=== PATIENT | female | born 1995 | race Caucasian/White ===

== ENCOUNTER 2017-12-21 13:56 | Outpatient (CLI) | payer BC | END 2017-12-21 13:57 | disposition home or self-care (01) | LOC: BICULT 13:56 | PROVIDERS: ATTEND Urology | DX: N20.0 Calculus of kidney (principal) | CPT/HCPCS: 76770 ==

== ENCOUNTER 2018-01-28 15:40 | Outpatient (CLI) | payer BC ==
[2018-01-28 16:30] LABS: Clarity Hazy (Clear); Urobilinogen 0.2 mg/dL (0.2-1.0)
[2018-01-28 16:32] LABS: Glucose, Urine (Dipstick) Unable to Interpret mg/dL (Negative); Leukocyte Unable to Interpret (Negative); Nitrite Unable to Interpret (Negative); Protein, Urine (Dipstick) Unable to Interpret mg/dL (Neg-Trace)
[2018-01-28 16:33] LABS: Bilirubin Unable to Interpret (Negative); Blood, Urine Unable to Interpret (Negative)
[2018-01-28 16:39] LABS: Bacteria/HPF Rare-Few HPF (None Seen); WBC/HPF None Seen HPF (0-3)
--- NOTE | 2018-01-28 17:48 | CT ---
NONCONTRAST CT ABDOMEN AND PELVIS 01/28/18 HISTORY: Severe left flank pain for one week. Patient has had flank pain for approximately one month. History of kidney stones. COMPARISON: 08/11/12. FINDINGS: There is a nonobstructing inferior pole right renal calculus measuring 7 to 8 mm. No left renal calcu kurtis is present and there is no hydronephrosis identified. While portions of each ureter are not well seen due to adjacent unopacified structures, there is no calculus seen along the expected course of e ither ureter to suggest a ureteral calculus. The visualized lung bases, liver, spleen, pancreas, bilateral adrenal glands, and left kidney demonst rate a grossly normal nonenhanced CT appearance. The urinary bladder is completely decompressed and not well evaluated. Uterus and adnexal structures have a grossly normal CT appearance. There is a small appendicolith in the appendix, but the appendix is normal in caliber without CT find ings to suggest appendicitis. There has been no additional significant interval change from the study in 2011. IMPRESSION: 1. Nonobstructing inferior pole right renal calculus. 2. No evidence of a ureteral calculus. 3. No CT evidence of appendicitis. 4. Multiple punctate increased density foci seen scattered throughout the colon likely related t o ingested material such as Bismuth. POS: [facility]
== END 2018-01-28 15:41 | disposition home or self-care (01) ==
LOC: SCSCT 15:40
PROVIDERS: ATTEND Urology
DX: N20.0 Calculus of kidney (principal)
CPT/HCPCS: 74176; 81001; 87086

== ENCOUNTER 2018-06-01 15:38 | Outpatient (CLI) | payer BC | END 2018-06-01 15:39 | disposition home or self-care (01) | LOC: BICRAD 15:38 | PROVIDERS: ATTEND Internal Medicine Rheumatology | DX: M46.97 Unspecified inflammatory spondylopathy, lumbosacral region (principal) | CPT/HCPCS: 72100 ==

== ENCOUNTER 2018-12-01 16:13 | Outpatient (CLI) | payer BC ==
--- NOTE | 2018-12-01 17:11 | RAD ---
RADIOGRAPH ABDOMEN 1 VIEW: 12/01/18 HISTORY: 23-year-old female with nephrolithiasis and right flank pain . COMPARISON: No prior KUBs. FINDINGS: There is an 8 x 6 mm calculus in the right upper quadrant medially, just lateral to the upper lumbar spine (there are transitional levels at thoracolumbar junction and lumbosacral junction). This probab ly represents the calculus that was noted at a lower pole calyx on the CT of 01/28/18, which has proba yvonne migrated now centrally into the right renal pelvis or UPJ. Bowel gas pattern is normal. No other calculus is visualized. IMPRESSION: Approximately 8 mm calculus has apparently migrated from right renal lower pole calyx into the right renal pelvis or right ureteropelvic junction. POS: [facility]
== END 2018-12-01 16:14 | disposition home or self-care (01) ==
LOC: BICRAD 16:13
PROVIDERS: ATTEND Urology
DX: N20.0 Calculus of kidney (principal)
CPT/HCPCS: 74018

== ENCOUNTER 2018-12-23 00:23 | Outpatient (CLI) | payer BC ==
[2018-12-23 15:42] LABS: Hemoglobin 13.7 g/dL (12.0-16.0); Mean Corpuscular HGB CONC 32.6 g/dL (32.0-36.0); Mean Corpuscular Hemoglobin 29.2 pg (27.0-31.0); Mean Corpuscular Volume 89.6 fL (78.0-98.0); Mean Platelet Volume 7.8 fL (7.4-10.4); Platelet Count 383 thou/uL (130-400); RBC Distribution Width 12.1 % (11.5-14.5); Red Blood Cell (RBC) Count 4.69 mill/uL (4.20-5.40); White Blood Cell (WBC) Count 10.2 thou/uL (4.8-10.8)
[2018-12-23 15:48] LABS: Bilirubin Negative (Negative); Blood, Urine Moderate (Negative); Clarity CLEAR (Clear); Glucose, Urine (Dipstick) Negative (Negative); Leukocyte Negative (Negative); Nitrite Negative (Negative); Protein, Urine (Dipstick) Negative (Neg-Trace); Urobilinogen 0.2 mg/dL (0.2-1.0); pH, Urine 6.5 (5.0-9.0)
[2018-12-23 15:50] LABS: Bacteria/HPF None Seen HPF (None Seen); Hyaline Casts/LPF 0-3 HYALINE CAST LPF (0-3 Hyaline); Pathc Cast-AUWi Flag 0.29 (0-2.49); RBC/HPF 21-50 HPF (0-3); Squamous Epithelial 0-3 HPF (0-3); WBC/HPF 0-3 HPF (0-3)
[2018-12-23 15:54] LABS: INR-International Normal Ratio 1.1; PTT 31.5 SEC (22.9-36.1); Prothrombin Time 13.8 SEC (12.0-14.7)
[2018-12-23 16:02] LABS: Anion Gap 13 mmol/L (10-20); BHCG - Serum Negative (NEGATIVE); BUN (Urea Nitrogen) 14 mg/dL (7.0-18.7); Calc. Creatinine Clearance 0 mL/min (70-130); Calcium 10.2 mg/dL (7.8-10.44); Carbon Dioxide 24 mmol/L (22-29); Chloride 106 mmol/L (98-107); Estimated GFR-MDRD 71; Glucose 88 mg/dL (70-105); Pregs Control Background? CLEAR/WHITE (CLR/WHITE); Pregs Control Bar Appear? YES (CONTROL BAR); Sodium 139 mmol/L (136-145)
== END 2018-12-23 00:24 | disposition home or self-care (01) ==
LOC: LABBT 00:23
PROVIDERS: ATTEND Urology
DX: Z01.812 Encounter for preprocedural laboratory examination (principal); R30.0 Dysuria; N39.41 Urge incontinence; R10.2 Pelvic and perineal pain; G89.29 Other chronic pain; N30.10 Interstitial cystitis (chronic) without hematuria; N20.0 Calculus of kidney
CPT/HCPCS: 80048; 81001; 84703; 85027; 85610; 85730; 87086

== ENCOUNTER 2018-12-29 08:08 | Outpatient (CLI) | payer BC ==
--- NOTE | 2018-12-29 09:18 | RAD ---
FRONTAL VIEW ABDOMEN KUB TWO VIEWS PROVIDED: INDICATION: Nephrolithiasis. FINDINGS: There are scattered air-filled bowel loops which do obscure the right renal shadow. Grossly stable d ensity overlies the right renal shadow, likely within the region of the right UPJ. No discrete left urinary tract calculi are visualized. IMPRESSION: Stable-appearing density projecting at the expected region of the right ureteropelvic junction. POS: [facility]
== END 2018-12-29 08:09 | disposition home or self-care (01) ==
LOC: BICRAD 08:08
PROVIDERS: ATTEND Urology
DX: N20.0 Calculus of kidney (principal); N28.89 Other specified disorders of kidney and ureter
CPT/HCPCS: 74018

== ENCOUNTER 2018-12-30 06:56 | Day surgery (SDC) | payer BC ==
[2018-12-23 15:41] VITALS: BMI 31.8
[2018-12-30] MEDS ORDERED: Midazolam HCl 2 mg/2 ml Vial ONE (08:37)
[2018-12-30] MEDS ORDERED: Fentanyl 100 MCG/2 ML VIAL ONE ×5 (08:37→11:19)
[2018-12-30] MEDS ORDERED: Levofloxacin 500 mg/D5W 100 ml Premix Bag ONE (08:38)
--- NOTE | 2018-12-30 10:38 | OP ---
DATE OF PROCEDURE: 12/30/2018 SERVICE: Urology. PREOPERATIVE DIAGNOSIS: Right ureteropelvic junction stone. POSTOPERATIVE DIAGNOSIS: Right ureteropelvic junction stone. PROCEDURE PERFORMED: Right extracorporeal shockwave lithotripsy. INDICATIONS FOR PROCEDURE: Ms. Carter is a 23-year-old white female, who initially presented to me with severe right flank pain. X-rays demonstrated a right UPJ stone. We discussed treatment options and due to her interstitial cystitis. She elected to go for ESWL. Risks and benefits have discussed and she has agreed to proceed forward. DESCRIPTION OF PROCEDURE: After identification of armband and verification of consent, the patient was brought back to the operating room. She underwent general anesthesia with an LMA. She was left in the supine position and positioned over the SWL machine. The stone was lined up on the X, Y, and Z axis and shocks began at 1 ice bar at 60 hertz. This was progressively increased up to 3 ice bars and ultimately 4 ice bars to achieve complete fragmentation. The stone did completely fragment with a total of 2500 shocks delivered. The patient tolerated the procedure well. She was awakened, taken to PACU for recovery in stable condition. COMPLICATIONS: None. ESTIMATED BLOOD LOSS: Minimal. RETAINED TUBES AND DRAINS: None. SPECIMENS: None. DISPOSITION: The patient will be discharged home and follow up with me in approximately 2 weeks for postop check. Job ID: [id number]
[2018-12-30] MEDS ORDERED: Promethazine HCl 25 MG/ML VIAL ONE (10:49)
[2018-12-30] MEDS ORDERED: Meperidine HCl/PF 25 MG/ML VIAL ONE (10:49)
[2018-12-30] MEDS ORDERED: Metoprolol Tartrate 5 MG/5 ML VIAL ONE (11:21)
[2018-12-30] MEDS ORDERED: Morphine 4 MG/ML VIAL ONE (11:50)
[2018-12-30] MEDS ORDERED: Lidocaine 1% PF 5 ML VIAL ONE (14:10)
[2018-12-30] MEDS ORDERED: PROPOFOL 200 MG/20 ML VIAL ONE (14:10)
== END 2018-12-30 13:00 | disposition home or self-care (01) ==
LOC: SDC 06:56
PROVIDERS: ATTEND Urology
PROC: 0TF3XZZ Fragmentation in Right Kidney Pelvis, External Approach (ICD-10-PCS; principal; 2018-12-30)
DX: N30.10 Interstitial cystitis (chronic) without hematuria (principal); N20.1 Calculus of ureter; N39.41 Urge incontinence; Z79.899 Other long term (current) drug therapy; Z88.0 Allergy status to penicillin; Z88.1 Allergy status to other antibiotic agents; Z88.2 Allergy status to sulfonamides; Z88.8 Allergy status to other drugs, medicaments and biological substances; Z91.018 Allergy to other foods
CPT/HCPCS: J1956; J2175; J2250; J2270; J2550; J3010

== ENCOUNTER 2022-06-16 16:27 | Inpatient (IN) | payer BC, SELFPAY ==
[2022-06-16] MEDS ORDERED: Ondansetron PF 4 MG/2 ML Vial ONE (16:45)
[2022-06-16] MEDS ORDERED: Morphine 4 MG/ML VIAL ONE ×2 (16:45→18:42)
[2022-06-16 17:09] LABS: #Basophils 0.1 thou/uL (0.0-0.2); #Eosinphils 0.8 thou/uL (0.0-0.7); #Lymphocytes 4.1 thou/uL (1.20-3.40); #Monocytes 0.9 thou/uL (0.11-0.59); #Neutrophils 8.2 thou/uL (1.40-6.50); %Basophils 0.5 % (0.0-1.0); %Eosinophils 5.6 % (0.0-10.0); %Lymphocytes 28.9 % (21.0-51.0); %Monocytes 6.6 % (0.0-10.0); %Neutrophils 58.4 % (42.0-75.0); Hemoglobin 12.7 g/dL (12.0-16.0); Mean Corpuscular HGB CONC 32.8 g/dL (32.0-36.0); Mean Corpuscular Hemoglobin 30.7 pg (27.0-31.0); Mean Corpuscular Volume 93.5 fL (78.0-98.0); Mean Platelet Volume 8.4 fL (7.4-10.4); Platelet Count 464 thou/uL (130-400); RBC Distribution Width 11.4 % (11.5-14.5); Red Blood Cell (RBC) Count 4.15 mill/uL (4.20-5.40)
[2022-06-16 17:38] LABS: ALT (SGPT) 18 U/L (8-55); AST (SGOT) 21 U/L (5-34); Albumin 4.9 g/dL (3.5-5.0); Alkaline Phosphatase 102 U/L (40-110); Anion Gap 19 mmol/L (10-20); BUN (Urea Nitrogen) 7 mg/dL (7.0-18.7); Bilirubin, Total 0.2 mg/dL (0.2-1.2); Calc. Creatinine Clearance 0 mL/min (70-130); Calcium 10.2 mg/dL (7.8-10.44); Carbon Dioxide 25 mmol/L (22-29); Chloride 102 mmol/L (98-107); Estimated GFR 78; Globulin 3.8 g/dL (2.4-3.5); Glucose 103 mg/dL (70-105); Lipase 14 U/L (8-78); Potassium 3.7 mmol/L (3.5-5.1); Protein, Total 8.7 g/dL (6.0-8.3); Sodium 142 mmol/L (136-145)
[2022-06-16 17:46] LABS: BHCG - Serum Negative (NEGATIVE); Pregs Control Background? CLEAR/WHITE (CLR/WHITE); Pregs Control Bar Appear? YES (CONTROL BAR)
[2022-06-16 18:32] LABS: Bacteria/HPF None Seen HPF (None Seen); Bilirubin Negative (Negative); Blood, Urine Negative (Negative); Clarity Turbid (Clear); Glucose, Urine (Dipstick) Normal (Negative); Ketone, Urine Negative (Negative); Leukocyte 75 Leu/uL (Negative); Nitrite Negative (Negative); Protein, Urine (Dipstick) Negative (Neg-Trace); RBC/HPF 0-3 HPF (0-3); Specific Gravity, Urine 1.017 (1.002-1.036); Squamous Epithelial 0-3 HPF (0-3); Urobilinogen Normal mg/dL (Less than 2); pH, Urine 6.5 (5.0-9.0)
[2022-06-16] MEDS ORDERED: Ketorolac Tromethamine 30 MG/ML VIAL ONE (18:42)
[2022-06-16 20:28] LABS: Lactic Acid 1.6 mmol/L (0.5-2.2)
[2022-06-16] MEDS ORDERED: metroNIDAZOLE 500 MG/100 ML BAG ONE (20:52)
[2022-06-16] MEDS ORDERED: Glycopyrrolate 0.2 MG/ML 5 ML SYRINGE SLOW IVP SCH (21:30)
[2022-06-16] MEDS ORDERED: diphenhydrAMINE 50 MG/ML VIAL ONE (22:11)
[2022-06-16] MEDS ORDERED: Adenosine 6 MG/2 ML VIAL ONE ×3 (22:33→22:45)
[2022-06-16] MEDS ORDERED: Lorazepam (BATCHED) 2 MG/ML SYR ONE (22:50)
[2022-06-17 01:55] VITALS: BMI 28.0
[2022-06-17 01:56] LABS: SARS-CoV-2 NAA Rapid Test Not Detected (NotDetected)
[2022-06-17] MEDS ORDERED: Ondansetron ODT 4 MG TAB SL PRN (02:00)
[2022-06-17] MEDS ORDERED: Ondansetron PF 4 MG/2 ML Vial IVP PRN ×2 (02:00→14:55)
[2022-06-17] MEDS ORDERED: Sodium Chloride 0.9% 1,000 ML IV SCH (02:00)
[2022-06-17] MEDS ORDERED: Acetaminophen 325 MG TAB PO PRN (02:00)
[2022-06-17] MEDS: Morphine 4 MG/ML VIAL SLOW IVP PRN ×2 (02:09→06:21)
[2022-06-17] MEDS: Sodium Chloride 0.9% 1,000 ML IV SCH ×3 (09:45→23:39)
[2022-06-17] MEDS: Fentanyl 100 MCG/2 ML VIAL SLOW IVP PRN ×2 (09:45→16:57)
[2022-06-17] MEDS ORDERED: Fentanyl 100 MCG/2 ML VIAL ONE ×2 (12:59→15:45)
[2022-06-17] MEDS: Clindamycin/D5W 600 MG in Premix Bag 1 BAG IVPB SCH ×4 (13:13→23:53)
[2022-06-17] MEDS ORDERED: fentaNYL Citrate/PF 100 MCG/2 ML SYRINGE ONE (13:18)
[2022-06-17] MEDS ORDERED: SUGAMMADEX SODIUM 200 MG/2 ML VIAL ONE (13:18)
[2022-06-17] MEDS ORDERED: Bupivacaine/Epinephrine 0.25% 30 ML VIAL ONE (13:20)
[2022-06-17] MEDS ORDERED: Dexamethasone 20 MG/5 ML VIAL ONE (13:47)
[2022-06-17] MEDS ORDERED: Rocuronium Bromide 10 MG/ML (10ML VIAL) ONE (13:47)
[2022-06-17] MEDS ORDERED: Esmolol 100 MG/10 ML VIAL ONE (13:47)
[2022-06-17] MEDS ORDERED: Ondansetron PF 4 MG/2 ML Vial ONE (13:47)
[2022-06-17] MEDS ORDERED: PROPOFOL 200 MG/20 ML VIAL ONE (13:47)
[2022-06-17] MEDS ORDERED: Lidocaine 1% PF 5 ML VIAL ONE (13:47)
[2022-06-17] MEDS ORDERED: Phenylephrine 10 MG/ML VIAL ONE (13:47)
[2022-06-17] MEDS ORDERED: Promethazine HCl 25 MG/ML VIAL IVPB PRN (14:40)
[2022-06-17] MEDS ORDERED: Promethazine HCl 25 MG/ML VIAL IM PRN ×2 (14:40→14:55)
[2022-06-17] MEDS ORDERED: Ondansetron HCl/PF 4 MG/2 ML Vial IVP PRN (14:40)
[2022-06-17] MEDS ORDERED: Dextrose 50% Abboject 50 ML SYRINGE SLOW IVP PRN (14:55)
[2022-06-17] MEDS ORDERED: HYDROcodone/Acetaminophen 10/325 mg Tablet PO PRN (14:55)
[2022-06-17] MEDS ORDERED: Dextrose 5% in Water 1,000 ML IV PRN (14:55)
[2022-06-17] MEDS ORDERED: Morphine 4 MG/ML VIAL SLOW IVP PRN (14:55)
[2022-06-17] MEDS ORDERED: Mag-Al 1200 mg/1200 mg/30 ML UDCUP PO PRN (14:55)
[2022-06-17] MEDS ORDERED: Calcium Carbonate 500 MG ChewTAB PO PRN (14:55)
[2022-06-17] MEDS ORDERED: hydrALAZINE 20 MG/ML VIAL SLOW IVP PRN (14:55)
[2022-06-17] MEDS: D5 1/2 NS w/20 mEq KCL 1,000 ML IV SCH ×2 (16:58→23:53)
[2022-06-17] MEDS: Ketorolac Tromethamine 30 MG/ML VIAL IVP SCH ×2 (18:36→23:54)
[2022-06-18] MEDS: Morphine 2 MG/ML VIAL SLOW IVP PRN ×2 (02:43→06:14)
[2022-06-18] MEDS: Ketorolac Tromethamine 30 MG/ML VIAL IVP SCH ×4 (05:20→23:25)
[2022-06-18] MEDS: Clindamycin/D5W 600 MG in Premix Bag 1 BAG IVPB SCH ×4 (05:20→23:25)
[2022-06-18] MEDS: Sodium Chloride 0.9% 1,000 ML IV SCH ×3 (07:29→23:40)
[2022-06-18] MEDS: Fentanyl 100 MCG/2 ML VIAL SLOW IVP PRN (08:02)
[2022-06-18] MEDS ORDERED: Diltiazem HCl SR 60 mg Capsule PO SCH ×2 (10:30→21:00)
[2022-06-18] MEDS: HYDROcodone/Acetaminophen 10/325 mg Tablet PO PRN ×3 (11:25→23:26)
[2022-06-18] MEDS: D5 1/2 NS w/20 mEq KCL 1,000 ML IV SCH ×4 (11:25→23:25)
[2022-06-18 11:31] LABS: #Monocytes 1.3 thou/uL (0.11-0.59); #Neutrophils 12.7 thou/uL (1.40-6.50); %Basophils 0.1 % (0.0-1.0); %Lymphocytes 6.8 % (21.0-51.0); %Monocytes 8.8 % (0.0-10.0); %Neutrophils 84.3 % (42.0-75.0); Hemoglobin 10.6 g/dL (12.0-16.0); Mean Corpuscular HGB CONC 32.5 g/dL (32.0-36.0); Mean Corpuscular Hemoglobin 29.8 pg (27.0-31.0); Mean Corpuscular Volume 91.7 fL (78.0-98.0); Mean Platelet Volume 8.2 fL (7.4-10.4); Platelet Count 377 thou/uL (130-400); RBC Distribution Width 11.5 % (11.5-14.5); Red Blood Cell (RBC) Count 3.56 mill/uL (4.20-5.40)
[2022-06-18 11:36] LABS: ALT (SGPT) 59 U/L (8-55); AST (SGOT) 53 U/L (5-34); Albumin 3.9 g/dL (3.5-5.0); Alkaline Phosphatase 76 U/L (40-110); Anion Gap 12 mmol/L (10-20); BUN (Urea Nitrogen) 6 mg/dL (7.0-18.7); Bilirubin, Total 0.2 mg/dL (0.2-1.2); Calc. Creatinine Clearance 130 mL/min (70-130); Calcium 9.2 mg/dL (7.8-10.44); Carbon Dioxide 23 mmol/L (22-29); Chloride 108 mmol/L (98-107); Estimated GFR 114; Globulin 3.2 g/dL (2.4-3.5); Glucose 101 mg/dL (70-105); Lipase 5 U/L (8-78); Potassium 4.3 mmol/L (3.5-5.1); Protein, Total 7.1 g/dL (6.0-8.3); Sodium 139 mmol/L (136-145)
[2022-06-18] MEDS: traMADol HCl 50 MG TAB PO SCH ×2 (15:35→20:10)
[2022-06-18] MEDS ORDERED: DULoxetine 60 MG CAP PO SCH (16:15)
[2022-06-18] MEDS: Pregabalin 50 MG CAP PO SCH (20:10)
[2022-06-18] MEDS ORDERED: tiZANidine HCl 4 MG TAB PO SCH (21:00)
[2022-06-19 04:15] LABS: #Lymphocytes 2.2 thou/uL (1.20-3.40); #Monocytes 1.6 thou/uL (0.11-0.59); #Neutrophils 8.8 thou/uL (1.40-6.50); %Basophils 0.4 % (0.0-1.0); %Eosinophils 0.3 % (0.0-10.0); %Lymphocytes 17.6 % (21.0-51.0); %Monocytes 12.5 % (0.0-10.0); %Neutrophils 69.2 % (42.0-75.0); Mean Corpuscular HGB CONC 32.8 g/dL (32.0-36.0); Mean Corpuscular Hemoglobin 30.6 pg (27.0-31.0); Mean Corpuscular Volume 93.1 fL (78.0-98.0); Mean Platelet Volume 7.9 fL (7.4-10.4); Platelet Count 264 thou/uL (130-400); RBC Distribution Width 11.5 % (11.5-14.5); Red Blood Cell (RBC) Count 2.94 mill/uL (4.20-5.40); White Blood Cell (WBC) Count 12.6 thou/uL (4.8-10.8)
[2022-06-19 04:21] LABS: Anion Gap 10 mmol/L (10-20); BUN (Urea Nitrogen) 8 mg/dL (7.0-18.7); Calc. Creatinine Clearance 137 mL/min (70-130); Calcium 8.5 mg/dL (7.8-10.44); Carbon Dioxide 23 mmol/L (22-29); Chloride 109 mmol/L (98-107); Estimated GFR 121; Glucose 97 mg/dL (70-105); Potassium 4.2 mmol/L (3.5-5.1); Sodium 138 mmol/L (136-145)
[2022-06-19] MEDS: Clindamycin/D5W 600 MG in Premix Bag 1 BAG IVPB SCH ×2 (05:40→11:45)
[2022-06-19] MEDS: Ketorolac Tromethamine 30 MG/ML VIAL IVP SCH ×2 (05:41→11:43)
[2022-06-19] MEDS: HYDROcodone/Acetaminophen 10/325 mg Tablet PO PRN ×2 (05:41→11:44)
[2022-06-19] MEDS: Sodium Chloride 0.9% 1,000 ML IV SCH (07:24)
[2022-06-19] MEDS: traMADol HCl 50 MG TAB PO SCH ×2 (08:19→15:15)
[2022-06-19] MEDS: Pregabalin 50 MG CAP PO SCH (08:20)
[2022-06-19] MEDS ORDERED: DULoxetine 60 MG CAP PO SCH (09:00)
[2022-06-19] MEDS ORDERED: Phenazopyridine HCl 100 MG TAB PO SCH (11:00)
[2022-06-19] MEDS: D5 1/2 NS w/20 mEq KCL 1,000 ML IV SCH (11:22)
[2022-06-19 11:49] VITALS: TEMP 98.9
== END 2022-06-19 15:45 | disposition home or self-care (01) | DRG 418 ==
LOC: ERS 16:27 → IMCU/EMU 23:54
PROVIDERS: ADMIT Surgery; ATTEND Hospitalist
PROC: 0FT44ZZ Resection of Gallbladder, Percutaneous Endoscopic Approach (ICD-10-PCS; principal; 2022-06-17)
DX: K80.00 Calculus of gallbladder with acute cholecystitis without obstruction (principal); I47.1 Supraventricular tachycardia; F32.A Depression, unspecified; F41.9 Anxiety disorder, unspecified; F17.210 Nicotine dependence, cigarettes, uncomplicated; M79.7 Fibromyalgia; Z20.822 Contact with and (suspected) exposure to COVID-19; Z88.1 Allergy status to other antibiotic agents; Z88.0 Allergy status to penicillin; Z91.013 Allergy to seafood; Z88.2 Allergy status to sulfonamides; Z91.018 Allergy to other foods
CPT/HCPCS: 36415; 76705; 80048; 80053; 81003; 81015; 83605; 83690; 84703; 85025; 87040; 87070; 87205; 88304; 93005; 96361; 96365; 96375; 96376; C1713; J0153; J0744; J1100; J1200; J1885; J1956; J2060; J2270; J2370; J2405; J2704; J3010; J3480; J3490; J7050; U0002

== ENCOUNTER 2022-08-06 10:01 | Inpatient (IN) | payer OTHER, SELFPAY ==
[2022-08-06] MEDS ORDERED: Pantoprazole 40 MG VIAL ONE (10:22)
[2022-08-06] MEDS ORDERED: Ondansetron PF 4 MG/2 ML Vial ONE (10:22)
[2022-08-06] MEDS ORDERED: Morphine 4 MG/ML VIAL ONE (10:22)
[2022-08-06 10:56] LABS: #Basophils 0.1 thou/uL (0.0-0.2); #Eosinphils 0.7 thou/uL (0.0-0.7); #Lymphocytes 2.9 thou/uL (1.20-3.40); #Monocytes 1.1 thou/uL (0.11-0.59); #Neutrophils 6.1 thou/uL (1.40-6.50); %Eosinophils 6.9 % (0.0-10.0); %Lymphocytes 26.2 % (21.0-51.0); %Monocytes 9.6 % (0.0-10.0); %Neutrophils 56.3 % (42.0-75.0); Hemoglobin 13.6 g/dL (12.0-16.0); Mean Corpuscular HGB CONC 30.9 g/dL (32.0-36.0); Mean Corpuscular Hemoglobin 29.5 pg (27.0-31.0); Mean Corpuscular Volume 95.3 fL (78.0-98.0); Mean Platelet Volume 9.4 fL (7.4-10.4); Platelet Count 303 thou/uL (130-400); RBC Distribution Width 13.1 % (11.5-14.5); Red Blood Cell (RBC) Count 4.62 mill/uL (4.20-5.40); White Blood Cell (WBC) Count 10.9 thou/uL (4.8-10.8)
[2022-08-06 11:32] LABS: BHCG - Serum Negative (NEGATIVE); Pregs Control Background? CLEAR/WHITE (CLR/WHITE); Pregs Control Bar Appear? YES (CONTROL BAR)
[2022-08-06 11:41] LABS: ALT (SGPT) 194 U/L (8-55); AST (SGOT) 43 U/L (5-34); Albumin 4.3 g/dL (3.5-5.0); Alkaline Phosphatase 195 U/L (40-110); Anion Gap 10 mmol/L (10-20); BUN (Urea Nitrogen) 8 mg/dL (7.0-18.7); Bilirubin, Total 2.2 mg/dL (0.2-1.2); Calc. Creatinine Clearance 0 mL/min (70-130); Calcium 9.6 mg/dL (7.8-10.44); Carbon Dioxide 25 mmol/L (22-29); Chloride 108 mmol/L (98-107); Estimated GFR 90; Globulin 3.5 g/dL (2.4-3.5); Potassium 3.9 mmol/L (3.5-5.1); Protein, Total 7.8 g/dL (6.0-8.3); Sodium 139 mmol/L (136-145)
[2022-08-06 11:55] LABS: Glucose 55 mg/dL (70-105)
[2022-08-06 12:16] LABS: Bilirubin 1+ (Negative); Blood, Urine Negative (Negative); Clarity Clear (Clear); Glucose, Urine (Dipstick) Normal (Negative); Ketone, Urine Negative (Negative); Leukocyte Negative Leu/uL (Negative); Nitrite Negative (Negative); Protein, Urine (Dipstick) 10 mg/dL (Neg-Trace); Specific Gravity, Urine 1.023 (1.002-1.036)
[2022-08-06] MEDS ORDERED: Iopamidol-370 76% 500 ML 1 ML ONE (12:55)
[2022-08-06] MEDS ORDERED: methylPREDNISolone Sod Succ/PF 125 MG/2 ML VIAL ONE (13:21)
[2022-08-06] MEDS ORDERED: diphenhydrAMINE 50 MG/ML VIAL ONE (13:21)
[2022-08-06 16:09] VITALS: BMI 27.6
[2022-08-06] MEDS ORDERED: Ondansetron PF 4 MG/2 ML Vial IVP PRN (16:15)
[2022-08-06] MEDS ORDERED: Acetaminophen 325 MG TAB PO PRN (16:15)
[2022-08-06] MEDS ORDERED: Ondansetron ODT 4 MG TAB SL PRN (16:15)
[2022-08-06 17:51] LABS: SARS-CoV-2 NAA Rapid Test Not Detected (NotDetected)
[2022-08-06] MEDS: Sodium Chloride 0.9% 1,000 ML IV SCH (18:20)
[2022-08-06] MEDS ORDERED: Morphine 4 MG/ML VIAL SLOW IVP PRN (18:55)
[2022-08-06] MEDS: Morphine 4 MG/ML VIAL SLOW IVP PRN (19:17)
[2022-08-06] MEDS: traMADol HCl 50 MG TAB PO PRN (20:46)
[2022-08-06] MEDS: Ondansetron PF 4 MG/2 ML Vial IVP PRN (20:48)
[2022-08-06] MEDS: metroNIDAZOLE 500 MG in Premix Bag 1 BAG IVPB SCH (21:40)
[2022-08-07] MEDS: Morphine 4 MG/ML VIAL SLOW IVP PRN (02:31)
[2022-08-07] MEDS: Sodium Chloride 0.9% 1,000 ML IV SCH (02:36)
[2022-08-07] MEDS: traMADol HCl 50 MG TAB PO PRN ×2 (04:00→15:23)
[2022-08-07] MEDS: diphenhydrAMINE 50 MG/ML VIAL IVP PRN ×3 (05:21→20:25)
[2022-08-07] MEDS: metroNIDAZOLE 500 MG in Premix Bag 1 BAG IVPB SCH ×3 (05:49→22:16)
[2022-08-07 08:17] LABS: #Basophils 0.1 thou/uL (0.0-0.2); #Lymphocytes 2.5 thou/uL (1.20-3.40); #Monocytes 0.8 thou/uL (0.11-0.59); #Neutrophils 8.5 thou/uL (1.40-6.50); %Basophils 0.4 % (0.0-1.0); %Eosinophils 0.4 % (0.0-10.0); %Lymphocytes 21.2 % (21.0-51.0); %Monocytes 6.4 % (0.0-10.0); %Neutrophils 71.6 % (42.0-75.0); Hemoglobin 12.2 g/dL (12.0-16.0); Mean Corpuscular HGB CONC 32.7 g/dL (32.0-36.0); Mean Corpuscular Hemoglobin 30.4 pg (27.0-31.0); Mean Corpuscular Volume 92.8 fL (78.0-98.0); Mean Platelet Volume 9.6 fL (7.4-10.4); Platelet Count 251 thou/uL (130-400); RBC Distribution Width 12.8 % (11.5-14.5); Red Blood Cell (RBC) Count 4.01 mill/uL (4.20-5.40); White Blood Cell (WBC) Count 11.8 thou/uL (4.8-10.8)
[2022-08-07 08:36] LABS: ALT (SGPT) 153 U/L (8-55); AST (SGOT) 49 U/L (5-34); Albumin 3.8 g/dL (3.5-5.0); Alkaline Phosphatase 166 U/L (40-110); Anion Gap 12 mmol/L (10-20); BUN (Urea Nitrogen) 6 mg/dL (7.0-18.7); Calc. Creatinine Clearance 119 mL/min (70-130); Calcium 9.2 mg/dL (7.8-10.44); Carbon Dioxide 20 mmol/L (22-29); Chloride 110 mmol/L (98-107); Estimated GFR 105; Globulin 2.9 g/dL (2.4-3.5); Glucose 80 mg/dL (70-105); Potassium 3.2 mmol/L (3.5-5.1); Protein, Total 6.7 g/dL (6.0-8.3); Sodium 139 mmol/L (136-145)
[2022-08-07] MEDS ORDERED: Famotidine/PF 20 mg/2ml Vial ONE (09:12)
[2022-08-07] MEDS ORDERED: diphenhydrAMINE 50 MG/ML VIAL ONE (09:12)
[2022-08-07] MEDS ORDERED: fentaNYL Citrate/PF 100 MCG/2 ML SYRINGE ONE (09:31)
[2022-08-07] MEDS ORDERED: Indomethacin 50 MG SUPP ONE (09:45)
[2022-08-07] MEDS ORDERED: Iopamidol 30 ML ONE (09:45)
[2022-08-07] MEDS ORDERED: SUGAMMADEX SODIUM 200 MG/2 ML VIAL ONE (09:51)
[2022-08-07] MEDS ORDERED: Ioversol 68 % 50 ML VIAL ONE (10:05)
[2022-08-07] MEDS ORDERED: Lidocaine 1% MPF 2 ML VIAL ONE (10:15)
[2022-08-07] MEDS ORDERED: Phenylephrine 10 MG/ML VIAL ONE (10:15)
[2022-08-07] MEDS ORDERED: Dexamethasone 20 MG/5 ML VIAL ONE (10:15)
[2022-08-07] MEDS ORDERED: Ondansetron PF 4 MG/2 ML Vial ONE (10:15)
[2022-08-07] MEDS ORDERED: Rocuronium Bromide 10 MG/ML (10ML VIAL) ONE (10:15)
[2022-08-07] MEDS ORDERED: PROPOFOL 200 MG/20 ML VIAL ONE (10:15)
[2022-08-07] MEDS ORDERED: Ketorolac Tromethamine 30 MG/ML VIAL ONE (10:15)
[2022-08-07] MEDS ORDERED: Esmolol 100 MG/10 ML VIAL ONE (10:15)
[2022-08-07] MEDS ORDERED: HYDROmorphone 2 MG/ML VIAL SLOW IVP PRN (12:13)
[2022-08-07] MEDS ORDERED: Promethazine HCl 25 MG/ML VIAL IM PRN (12:13)
[2022-08-07] MEDS ORDERED: Ondansetron HCl/PF 4 MG/2 ML Vial IVP PRN (12:13)
[2022-08-07] MEDS ORDERED: Promethazine HCl 25 MG/ML VIAL IVPB PRN (12:13)
[2022-08-07] MEDS: Ondansetron PF 4 MG/2 ML Vial IVP PRN (15:22)
[2022-08-07] MEDS ORDERED: DULoxetine 60 MG CAP PO SCH (16:00)
[2022-08-07] MEDS: traMADol HCl 50 MG TAB PO SCH (20:22)
[2022-08-07] MEDS: Pregabalin 50 MG CAP PO SCH (20:22)
[2022-08-07] MEDS: tiZANidine HCl 4 MG TAB PO SCH (20:23)
[2022-08-08] MEDS: Morphine 4 MG/ML VIAL SLOW IVP PRN ×3 (04:07→17:38)
[2022-08-08] MEDS: traMADol HCl 50 MG TAB PO PRN ×2 (05:08→13:02)
[2022-08-08] MEDS: metroNIDAZOLE 500 MG in Premix Bag 1 BAG IVPB SCH ×2 (05:10→14:52)
[2022-08-08] MEDS: Pregabalin 50 MG CAP PO SCH ×2 (08:35→21:13)
[2022-08-08] MEDS: traMADol HCl 50 MG TAB PO SCH ×3 (08:38→21:13)
[2022-08-08] MEDS: DULoxetine 60 MG CAP PO SCH (08:38)
[2022-08-08] MEDS: diphenhydrAMINE 50 MG/ML VIAL IVP PRN ×3 (08:40→21:16)
[2022-08-08] MEDS ORDERED: Polyethylene Glycol 3350 17 GM Packet PO SCH (10:00)
[2022-08-08 18:39] LABS: #Basophils 0.1 thou/uL (0.0-0.2); #Eosinphils 0.3 thou/uL (0.0-0.7); #Lymphocytes 3.3 thou/uL (1.20-3.40); #Monocytes 0.7 thou/uL (0.11-0.59); #Neutrophils 4.3 thou/uL (1.40-6.50); %Basophils 0.8 % (0.0-1.0); %Eosinophils 3.7 % (0.0-10.0); %Lymphocytes 38.2 % (21.0-51.0); %Monocytes 8.2 % (0.0-10.0); %Neutrophils 49.1 % (42.0-75.0); Hemoglobin 12.6 g/dL (12.0-16.0); Mean Corpuscular HGB CONC 31.1 g/dL (32.0-36.0); Mean Corpuscular Hemoglobin 29.5 pg (27.0-31.0); Mean Corpuscular Volume 94.8 fL (78.0-98.0); Mean Platelet Volume 9.6 fL (7.4-10.4); Platelet Count 245 thou/uL (130-400); RBC Distribution Width 13.2 % (11.5-14.5); Red Blood Cell (RBC) Count 4.27 mill/uL (4.20-5.40); White Blood Cell (WBC) Count 8.7 thou/uL (4.8-10.8)
[2022-08-08] MEDS ORDERED: Sodium Chloride 0.9% 1,000 ML IV SCH (19:15)
[2022-08-08] MEDS: D5 1/2 NS w/20 mEq KCL 1,000 ML IV SCH (21:11)
[2022-08-08] MEDS: tiZANidine HCl 4 MG TAB PO SCH (21:13)
[2022-08-09] MEDS: metroNIDAZOLE 500 MG in Premix Bag 1 BAG IVPB SCH ×4 (00:12→22:13)
[2022-08-09] MEDS: D5 1/2 NS w/20 mEq KCL 1,000 ML IV SCH ×3 (06:17→20:43)
[2022-08-09 06:24] LABS: #Basophils 0.1 thou/uL (0.0-0.2); #Eosinphils 0.5 thou/uL (0.0-0.7); #Lymphocytes 3.9 thou/uL (1.20-3.40); #Monocytes 0.6 thou/uL (0.11-0.59); #Neutrophils 3.2 thou/uL (1.40-6.50); %Basophils 0.9 % (0.0-1.0); %Eosinophils 6.5 % (0.0-10.0); %Lymphocytes 46.8 % (21.0-51.0); %Monocytes 7.5 % (0.0-10.0); %Neutrophils 38.3 % (42.0-75.0); Hemoglobin 11.6 g/dL (12.0-16.0); Mean Corpuscular HGB CONC 30.6 g/dL (32.0-36.0); Mean Corpuscular Hemoglobin 29.1 pg (27.0-31.0); Mean Corpuscular Volume 95.3 fL (78.0-98.0); Mean Platelet Volume 9.5 fL (7.4-10.4); Platelet Count 249 thou/uL (130-400); RBC Distribution Width 13.2 % (11.5-14.5); Red Blood Cell (RBC) Count 3.97 mill/uL (4.20-5.40); White Blood Cell (WBC) Count 8.3 thou/uL (4.8-10.8)
[2022-08-09 06:39] LABS: ALT (SGPT) 126 U/L (8-55); AST (SGOT) 52 U/L (5-34); Albumin 3.4 g/dL (3.5-5.0); Alkaline Phosphatase 135 U/L (40-110); Anion Gap 10 mmol/L (10-20); BUN (Urea Nitrogen) 5 mg/dL (7.0-18.7); Calc. Creatinine Clearance 119 mL/min (70-130); Calcium 8.7 mg/dL (7.8-10.44); Carbon Dioxide 26 mmol/L (22-29); Chloride 106 mmol/L (98-107); Estimated GFR 105; Globulin 2.7 g/dL (2.4-3.5); Glucose 109 mg/dL (70-105); Lipase 159 U/L (8-78); Potassium 3.9 mmol/L (3.5-5.1); Protein, Total 6.1 g/dL (6.0-8.3); Sodium 138 mmol/L (136-145)
[2022-08-09] MEDS: diphenhydrAMINE 50 MG/ML VIAL IVP PRN ×3 (09:06→20:22)
[2022-08-09] MEDS: DULoxetine 60 MG CAP PO SCH (09:06)
[2022-08-09] MEDS: Pregabalin 50 MG CAP PO SCH ×2 (09:06→20:24)
[2022-08-09] MEDS: traMADol HCl 50 MG TAB PO SCH ×3 (09:07→20:26)
[2022-08-09] MEDS: Ondansetron ODT 4 MG TAB PO PRN ×2 (10:50→16:54)
[2022-08-09] MEDS: Polyethylene Glycol 3350 17 GM Packet PO SCH (11:02)
[2022-08-09] MEDS: tiZANidine HCl 4 MG TAB PO SCH (20:26)
[2022-08-09] MEDS ORDERED: Sodium Chloride 0.9% 1,000 ML IV SCH (23:45)
[2022-08-10] MEDS: D5 1/2 NS w/20 mEq KCL 1,000 ML IV SCH ×2 (00:37→09:04)
[2022-08-10] MEDS: diphenhydrAMINE 50 MG/ML VIAL IVP PRN ×2 (05:58→08:56)
[2022-08-10] MEDS: metroNIDAZOLE 500 MG in Premix Bag 1 BAG IVPB SCH (05:58)
[2022-08-10] MEDS: Ondansetron ODT 4 MG TAB PO PRN (07:52)
[2022-08-10 08:21] VITALS: BP 110/74
[2022-08-10] MEDS: traMADol HCl 50 MG TAB PO SCH (08:54)
[2022-08-10] MEDS: DULoxetine 60 MG CAP PO SCH (08:54)
[2022-08-10] MEDS: Pregabalin 50 MG CAP PO SCH (08:55)
[2022-08-10] MEDS: Polyethylene Glycol 3350 17 GM Packet PO SCH (08:56)
[2022-08-10 09:03] LABS: ALT (SGPT) 127 U/L (8-55); AST (SGOT) 52 U/L (5-34); Albumin 3.7 g/dL (3.5-5.0); Alkaline Phosphatase 141 U/L (40-110); Anion Gap 12 mmol/L (10-20); BUN (Urea Nitrogen) 5 mg/dL (7.0-18.7); Calc. Creatinine Clearance 84 mL/min (70-130); Calcium 9.4 mg/dL (7.8-10.44); Carbon Dioxide 25 mmol/L (22-29); Chloride 106 mmol/L (98-107); Estimated GFR 68; Glucose 94 mg/dL (70-105); Potassium 4.6 mmol/L (3.5-5.1); Protein, Total 6.7 g/dL (6.0-8.3); Sodium 138 mmol/L (136-145)
[2022-08-10 12:26] VITALS: TEMP 98.5
== END 2022-08-10 12:50 | disposition home or self-care (01) | DRG 393 ==
LOC: ERS 10:01 → SURG B 15:24
PROVIDERS: ADMIT Surgery; ATTEND Surgery
PROC: 0FC98ZZ Extirpation of Matter from Common Bile Duct, Via Natural or Artificial Opening Endoscopic (ICD-10-PCS; principal; 2022-08-07)
PROC: BF101ZZ Fluoroscopy of Bile Ducts using Low Osmolar Contrast (ICD-10-PCS; 2022-08-07)
DX: K91.86 Retained cholelithiasis following cholecystectomy (principal); K85.90 Acute pancreatitis without necrosis or infection, unspecified; K92.1 Melena; Z90.49 Acquired absence of other specified parts of digestive tract; J30.9 Allergic rhinitis, unspecified; Z87.442 Personal history of urinary calculi; Z20.822 Contact with and (suspected) exposure to COVID-19; F41.9 Anxiety disorder, unspecified; G89.29 Other chronic pain; F32.A Depression, unspecified; G47.00 Insomnia, unspecified; Z88.1 Allergy status to other antibiotic agents; Z88.2 Allergy status to sulfonamides; F17.210 Nicotine dependence, cigarettes, uncomplicated; F17.290 Nicotine dependence, other tobacco product, uncomplicated; Z91.041 Radiographic dye allergy status; Z88.0 Allergy status to penicillin; Z88.8 Allergy status to other drugs, medicaments and biological substances; Z91.018 Allergy to other foods; K59.00 Constipation, unspecified; F43.10 Post-traumatic stress disorder, unspecified
CPT/HCPCS: 36415; 74019; 74177; 74330; 80053; 81003; 83605; 83690; 84703; 85025; 93005; 93010; 96361; 96374; 96375; C9113; J0744; J1100; J1200; J1610; J1885; J2270; J2370; J2405; J2704; J2930; J3480; J7050; Q0162; Q9967; S0028; U0002

== ENCOUNTER 2023-09-24 18:40 | Emergency (ER) | payer OTHER ==
[2023-09-24] MEDS ORDERED: Ondansetron PF 4 MG/2 ML Vial ONE (19:30)
[2023-09-24] MEDS ORDERED: Ketorolac Tromethamine 30 MG/ML VIAL ONE (19:30)
[2023-09-24 19:32] LABS: #Basophils 0.1 thou/uL (0.0-0.2); #Eosinphils 0.4 thou/uL (0.0-0.7); #Monocytes 0.7 thou/uL (0.11-0.59); #Neutrophils 4.3 thou/uL (1.40-6.50); %Basophils 0.7 % (0.0-1.0); %Eosinophils 4.4 % (0.0-10.0); %Lymphocytes 38.8 % (21.0-51.0); %Monocytes 7.8 % (0.0-10.0); %Neutrophils 48.2 % (42.0-75.0); Hematocrit 44.1 % (36.0-47.0); Hemoglobin 15.4 g/dL (12.0-16.0); Mean Corpuscular HGB CONC 34.9 g/dL (32.0-36.0); Mean Corpuscular Hemoglobin 30.6 pg (27.0-31.0); Mean Corpuscular Volume 87.5 fl (78.0-98.0); Mean Platelet Volume 10.8 fL (7.4-10.4); Platelet Count 352 10x3/uL (130-400); RBC Distribution Width 12.9 % (11.5-14.5); Red Blood Cell (RBC) Count 5.04 mill/uL (4.20-5.40); White Blood Cell (WBC) Count 8.9 10x3/uL (4.8-10.8)
[2023-09-24 19:52] LABS: Acetaminophen Less than 10 mcg/mL (10.0-30.0); Alcohol Less than 10.0 mg/dL (Less than 10); Magnesium 1.5 mg/dL (1.6-2.6); Salicylate Less than 8.0 mg/dL (15.0-30.0)
[2023-09-24 19:55] LABS: ALT (SGPT) 149 U/L (8-55); AST (SGOT) 104 U/L (5-34); Albumin 4.3 g/dL (3.5-5.0); Alkaline Phosphatase 191 U/L (40-110); Anion Gap 14 mmol/L (10-20); BUN (Urea Nitrogen) 8 mg/dL (7.0-18.7); Bilirubin, Total 0.7 mg/dL (0.2-1.2); CK (CPK) 59 U/L (29-168); Calc. Creatinine Clearance 0 mL/min (70-130); Calcium 9.4 mg/dL (7.8-10.44); Carbon Dioxide 24 mmol/L (22-29); Chloride 105 mmol/L (98-107); Estimated GFR 85; Globulin 3.1 g/dL (2.4-3.5); Glucose 190 mg/dL (70-105); Potassium 3.1 mmol/L (3.5-5.1); Protein, Total 7.4 g/dL (6.0-8.3); Sodium 140 mmol/L (136-145)
[2023-09-24] MEDS ORDERED: Potassium Bicarbonate/Cit Ac 20 MEQ TAB ONE (20:53)
[2023-09-24] MEDS ORDERED: Magnesium 2 GM/50 ML BAG (IN WATER) ONE (20:53)
[2023-09-24] MEDS ORDERED: Morphine 4 MG/ML VIAL ONE (20:53)
[2023-09-24] MEDS ORDERED: Lidocaine 2% Viscous Solution 10 ML, Aluminum & Magnesium Hydroxide 30 ML SSW SCH (21:30)
[2023-09-24 21:47] LABS: Bacteria/HPF None Seen HPF (None Seen); Bilirubin Negative (Negative); Blood, Urine 3+ (Negative); CAUTI Indications for Culture Pelvic or flank pain; Clarity Turbid (Clear); Glucose, Urine (Dipstick) Normal (Negative); Ketone, Urine Negative (Negative); Leukocyte 75 Leu/uL (Negative); Nitrite Negative (Negative); Protein, Urine (Dipstick) 20 mg/dL (Neg-Trace); RBC/HPF Greater than 50 HPF (0-3); Specific Gravity, Urine 1.025 (1.002-1.036); Squamous Epithelial 0-3 HPF (0-3)
[2023-09-24 21:50] LABS: Urine Culture Reflex Yes Yes
[2023-09-24 21:51] LABS: Amphetamine Not Detected (NotDetected); Barbiturates Screen Not Detected (NotDetected); Benzodiazepine Screen Not Detected (NotDetected); Cocaine Metabolite Screen Not Detected (NotDetected); Methadone Not Detected (NotDetected); Methamphetamine Not Detected (NotDetected); Opiate Screen Not Detected (NotDetected); Oxycodone Screen Not Detected (NotDetected); Phencyclidine (PCP) Detected (NotDetected); THC/Cannabinoid Screen Not Detected (NotDetected); Tricyclic Screen Not Detected (NotDetected)
[2023-09-24 23:06] LABS: Lactic Acid 1.3 mmol/L (0.5-2.2)
[2023-09-25 00:20] LABS: HBCM Index 0.11 S/CO (0-0.79); HBSAg Index 0.44 S/CO (0-0.99); Hep A IgM AB Non-Reactive S/CO (NonReactive); Hep A IgM S/CO 0.19 S/CO (0-0.79); Hep B Surf Ag Non-Reactive S/CO (NonReactive); Hep C IgG Ab Non-Reactive S/CO (NonReactive); Hep C Index 0.07 S/CO (0-0.79); Hepatitis B Core IgM Abs Non-Reactive S/CO (NonReactive)
== END 2023-09-24 23:06 | disposition home or self-care (01) ==
LOC: ERS 18:40
DX: K52.9 Noninfective gastroenteritis and colitis, unspecified (principal); K21.9 Gastro-esophageal reflux disease without esophagitis; F17.290 Nicotine dependence, other tobacco product, uncomplicated; M79.7 Fibromyalgia
CPT/HCPCS: 36415; 76856; 80053; 80074; 80306; 80307; 81001; 82550; 83605; 83690; 83735; 85025; 86140; 87040; 87086; 93005; 93976; 96361; 96365; 96375; J1885; J2270; J2405; J3475

== ENCOUNTER 2024-01-19 12:08 | Emergency (ER) | payer OTHER ==
[2024-01-19 12:44] LABS: #Basophils 0.1 thou/uL (0.0-0.2); #Eosinphils 0.4 thou/uL (0.0-0.7); #Monocytes 1.1 thou/uL (0.11-0.59); #Neutrophils 6.9 thou/uL (1.40-6.50); %Basophils 0.8 % (0.0-1.0); %Eosinophils 3.3 % (0.0-10.0); %Lymphocytes 28.6 % (21.0-51.0); %Monocytes 9.3 % (0.0-10.0); %Neutrophils 57.8 % (42.0-75.0); Hematocrit 40.6 % (36.0-47.0); Hemoglobin 13.9 g/dL (12.0-16.0); Mean Corpuscular HGB CONC 34.2 g/dL (32.0-36.0); Mean Corpuscular Volume 90.4 fl (78.0-98.0); Mean Platelet Volume 10.3 fL (7.4-10.4); Platelet Count 395 10x3/uL (130-400); Red Blood Cell (RBC) Count 4.49 mill/uL (4.20-5.40)
[2024-01-19 13:00] LABS: ALT (SGPT) 24 U/L (8-55); AST (SGOT) 24 U/L (5-34); Albumin 4.8 g/dL (3.5-5.0); Alkaline Phosphatase 105 U/L (40-110); Anion Gap 16 mmol/L (10-20); BUN (Urea Nitrogen) 16 mg/dL (7.0-18.7); Bilirubin, Total 0.4 mg/dL (0.2-1.2); Calc. Creatinine Clearance 0 mL/min (70-130); Calcium 10.8 mg/dL (7.8-10.44); Carbon Dioxide 27 mmol/L (22-29); Chloride 100 mmol/L (98-107); Estimated GFR 59; Globulin 3.5 g/dL (2.4-3.5); Glucose 92 mg/dL (70-105); Protein, Total 8.3 g/dL (6.0-8.3); Sodium 139 mmol/L (136-145)
[2024-01-19 13:18] LABS: Bacteria/HPF None Seen HPF (None Seen); Bilirubin Negative (Negative); Blood, Urine Trace (Negative); CAUTI Indications for Culture Dysuria,urgency,freq; Clarity Clear (Clear); Glucose, Urine (Dipstick) Normal (Negative); Ketone, Urine Negative (Negative); Leukocyte 25 Leu/uL (Negative); Nitrite Negative (Negative); Protein, Urine (Dipstick) 20 mg/dL (Neg-Trace); RBC/HPF 0-3 HPF (0-3); Specific Gravity, Urine 1.018 (1.002-1.036); Squamous Epithelial 0-3 HPF (0-3); Urobilinogen Normal mg/dL (Less than 2)
[2024-01-19 13:21] LABS: Pregnancy Test - Urine (BHCG) Negative (Negative); Specific Gravity 1.018 (1.002-1.036)
[2024-01-19 13:22] LABS: Pregu Control Background? CLEAR/WHITE (CLR/WHITE); Pregu Control Bar Appear? YES (CONTROL BAR); Urine Culture Reflex No No
[2024-01-19] MEDS ORDERED: Ondansetron PF 4 MG/2 ML Vial ONE (13:22)
[2024-01-19] MEDS ORDERED: Ketorolac Tromethamine 30 MG (1 mL) VIAL ONE (13:22)
[2024-01-19] MEDS ORDERED: Morphine 4 MG/ML VIAL ONE (15:16)
== END 2024-01-19 16:06 | disposition home or self-care (01) ==
LOC: ERS 12:08
DX: N39.0 Urinary tract infection, site not specified (principal); N13.2 Hydronephrosis with renal and ureteral calculous obstruction; F17.290 Nicotine dependence, other tobacco product, uncomplicated
CPT/HCPCS: 36415; 74176; 80053; 81001; 81025; 85025; 96361; 96374; 96375; J1885; J2270; J2405